=== PATIENT | female | born 1985 | race Caucasian/White ===

== ENCOUNTER 2023-07-15 18:00 | Emergency (ER) | payer SELFPAY ==
[~2023-07-15] VITALS: Ht 162.6 cm; Wt 90.9 kg
[2023-07-15] MEDS ORDERED: ESTROVEN CMPLT M4 MG PO (18:14)
[2023-07-15 19:09] LABS: BASO # 0.03 K/mm3 (0.02-0.10); EOS # 0.12 K/mm3 (0.04-0.40); EOS % 0.8 % (1.0-5.0); HEMATOCRIT 40.9 % (37.0-47.0); HEMOGLOBIN 14.2 g/dL (12.5-16.0); LYMPH# 1.68 K/mm3 (1.50-4.00); MEAN CELL VOLUME 91 fl (78-100); MEAN CORPUSCULAR HEMOGLOBIN 32 pg (27-31); MEAN CORPUSCULAR HGB CONC 35 g/dL (33-37); MEAN PLATELET VOLUME 10.7 fl (7.4-10.4); MONO # 0.61 K/mm3 (0.20-0.80); NEU # 12.13 K/mm3 (1.40-6.50); PLATELET COUNT 180 K/mm3 (130-400); RED CELL DISTRIBUTION WIDTH 11.8 % (11.5-14.5); WHITE BLOOD COUNT 14.6 K/mm3 (4.8-10.8)
[2023-07-15 19:19] LABS: ALBUMIN 4.1 g/dL (3.5-5.0)
[2023-07-15 19:21] LABS: CALCIUM 9.1 mg/dL (8.3-10.5)
[2023-07-15 19:22] LABS: TOTAL PROTEIN 6.4 g/dL (6.4-8.3)
[2023-07-15 19:24] LABS: TOTAL BILIRUBIN 0.8 mg/dL (0.2-1.2)
[2023-07-15 19:47] LABS: URINE WBC 0 /hpf (0-3)
[2023-07-15 19:51] LABS: URINE APPEARANCE CLEAR (CLEAR); URINE BILIRUBIN NEGATIVE (NEGATIVE); URINE BLOOD NEGATIVE (NEGATIVE); URINE COLOR YELLOW (YELLOW); URINE GLUCOSE NEGATIVE (NEGATIVE); URINE KETONE NEGATIVE (NEGATIVE); URINE LEUKOCYTE ESTERASE NEGATIVE (NEGATIVE); URINE NITRATE NEGATIVE (NEGATIVE); URINE PROTEIN(semi-quant) NEGATIVE (NEGATIVE)
[2023-07-15 19:56] LABS: URINE MUCUS PRESENT (NOT PRESENT)
[2023-07-15 20:05] LABS: LIPASE 14 U/L (8-78)
[2023-07-15 22:45] VITALS: BP 130/84
== END 2023-07-15 23:09 | disposition short-term general hospital (02) ==
LOC: ED 18:00
PROVIDERS: Family Medicine
DX: K35.80 Unspecified acute appendicitis (principal)
CPT/HCPCS: J1836; J1956; J3010; J7030; Q9967